=== PATIENT | female | born 1970 | race Two or more races ===

== ENCOUNTER 2023-02-24 08:15 | Inpatient (IN) | payer OTHER ==
[~2023-02-24] VITALS: Ht 160 cm; Wt 70.3 kg
[~2023-02-24 08:15] MED LIST: TOPROL XL25 M1 PO
[2023-02-28] MEDS ORDERED: CELEXA10 MG (08:12)
[2023-02-28] MEDS ORDERED: CELEXA20 MG (08:12)
[2023-02-28] MEDS ORDERED: MEGESTROL ACETA40 MG (08:13)
[2023-02-28 19:21] LABS: HEMATOCRIT 27.7 % (36.0-45.00); MEAN CELL VOLUME 86.7 fL (80.00-100.00); MEAN CORPUSCULAR HGB CONC 34.4 g/dl (32.0-36.0); PLATELET COUNT 208 K/uL (150-450); RED BLOOD COUNT 3.19 M/uL (4.00-6.00); RED CELL DISTRIBUTION WIDTH 13.5 % (11.5-14.5)
[2023-02-28 19:25] LABS: HEMOGLOBIN 9.5 g/dL (12.0-15.00); MEAN CORPUSCULAR HEMOGLOBIN 29.7 pg (27.00-32.0)
[2023-03-01 08:27] LABS: HEMOGLOBIN 8.9 g/dL (12.0-15.00); MEAN CELL VOLUME 86.9 fL (80.00-100.00); MEAN CORPUSCULAR HEMOGLOBIN 29.7 pg (27.00-32.0); MEAN CORPUSCULAR HGB CONC 34.3 g/dl (32.0-36.0); PLATELET COUNT 183 K/uL (150-450); RED BLOOD COUNT 2.99 M/uL (4.00-6.00); RED CELL DISTRIBUTION WIDTH 13.4 % (11.5-14.5)
[2023-03-02 05:32] LABS: HEMATOCRIT 25.4 % (36.0-45.00); MEAN CELL VOLUME 86.6 fL (80.00-100.00); MEAN CORPUSCULAR HGB CONC 34.3 g/dl (32.0-36.0); PLATELET COUNT 180 K/uL (150-450); RED BLOOD COUNT 2.94 M/uL (4.00-6.00); RED CELL DISTRIBUTION WIDTH 13.4 % (11.5-14.5)
[2023-03-02 05:33] LABS: HEMOGLOBIN 8.7 g/dL (12.0-15.00); MEAN CORPUSCULAR HEMOGLOBIN 29.5 pg (27.00-32.0)
[2023-03-02] MEDS ORDERED: ZOFRAN8 MG PO (11:59)
[2023-03-02] MEDS ORDERED: COLACE100 MG PO (12:00)
[2023-03-02] MEDS ORDERED: TOPROL XL25 M1 PO (12:01)
[2023-03-02] MEDS ORDERED: DICLOFENAC POTA50 MG PO (12:02)
[2023-03-02] MEDS ORDERED: ACETAMINOPHEN-1 EAC2 PO (12:04)
[2023-03-02] MEDS ORDERED: TANDEM PLUS CA1 EACH PO (12:08)
== END 2023-03-02 13:30 | disposition home or self-care (01) | DRG 743 ==
LOC: O/R 02-27 05:35 → OB/GYN 02-27 05:35 → SURH 02-27 08:15 → OB/GYN 02-27 13:58 → SURH 02-27 14:30 → OB/GYN 03-02 13:30
PROVIDERS: ADMIT Obstetrics & Gynecology; ATTEND Obstetrics & Gynecology
PROC: 0UT70ZZ Resection of Bilateral Fallopian Tubes, Open Approach (ICD-10-PCS; 2023-02-27)
PROC: 0USG7ZZ Reposition Vagina, Via Natural or Artificial Opening (ICD-10-PCS; 2023-02-27)
PROC: 0UT90ZZ Resection of Uterus, Open Approach (ICD-10-PCS; principal; 2023-02-27 14:30)
DX: D25.1 Intramural leiomyoma of uterus (principal); D25.2 Subserosal leiomyoma of uterus; N80.03 Adenomyosis of the uterus; N72 Inflammatory disease of cervix uteri; Z20.822 Contact with and (suspected) exposure to COVID-19

== ENCOUNTER 2023-03-04 12:10 | Inpatient (IN) | payer OTHER ==
[~2023-03-04] VITALS: Ht 160 cm; Wt 70.3 kg
[~2023-03-04 12:10] MED LIST changes: +ACETAMINOPHEN-1 EAC2 PO; +CELEXA10 MG; +CELEXA20 MG; +COLACE100 MG PO; +DICLOFENAC POTA50 MG PO; +MEGESTROL ACETA40 MG; +TANDEM PLUS CA1 EACH PO; +ZOFRAN8 MG PO
[2023-03-04 17:00] LABS: HEMOGLOBIN 10.8 g/dL (12.0-15.00); MEAN CORPUSCULAR HEMOGLOBIN 28.9 pg (27.00-32.0); MEAN CORPUSCULAR HGB CONC 33.6 g/dl (32.0-36.0); PLATELET COUNT 257 K/uL (150-450); RED BLOOD COUNT 3.73 M/uL (4.00-6.00); RED CELL DISTRIBUTION WIDTH 13.7 % (11.5-14.5)
[2023-03-04 17:28] LABS: C-REACTIVE PROTEIN 2.8 MG/DL (0.00-0.29); CALCIUM 8.9 mg/dL (8.5-10.1); CREATININE SERUM 0.8 mg/dL (0.55-1.02); GFR 74.75; POTASSIUM 3.54 mEq/L (3.5-5.1)
[2023-03-04 18:13] LABS: ERYTHROCYTE SEDIMENTATION RATE 27 mm/hr
[2023-03-04 21:43] LABS: INR 1.06; PARTIAL THROMBOPLASTIN TIME 26.6 SECONDS (22.0-34.0); PROTHROMBIN TIME 11.1 SECONDS (9.0-11.5)
[2023-03-04 21:47] LABS: URINE APPEARANCE Clear; URINE BILIRRUBIN Negative (NEGATIVE); URINE BLOOD Large; URINE COLOR Yellow; URINE GLUCOSE Negative (NEGATIVE); URINE LEUKOCYTE Trace; URINE NITRATE Negative; URINE PROTEIN Negative (NEGATIVE); URINE UROBILINOGEN 0.2 E.U./dl
[2023-03-04 21:50] LABS: URINE BACTERIA 55.4 uL (0.0-1933); URINE EPITHELIAL CELLS 7.5 uL (0.0-38.8); URINE RBC 458.1 uL (0.0-20.8); URINE WBC 44.3 uL (0.0-23.2)
[2023-03-06 05:57] LABS: HEMATOCRIT 30.2 % (36.0-45.00); HEMOGLOBIN 10.3 g/dL (12.0-15.00); MEAN CELL VOLUME 86.7 fL (80.00-100.00); MEAN CORPUSCULAR HEMOGLOBIN 29.6 pg (27.00-32.0); MEAN CORPUSCULAR HGB CONC 34.1 g/dl (32.0-36.0); PLATELET COUNT 256 K/uL (150-450); RED BLOOD COUNT 3.48 M/uL (4.00-6.00); RED CELL DISTRIBUTION WIDTH 13.5 % (11.5-14.5)
[2023-03-06 06:42] LABS: ALBUMIN 3.2 gm/dL (3.4-5.0); BILIRUBIN TOTAL 1.1 mg/dL (0.3-1.2); CALCIUM 8.4 mg/dL (8.5-10.1); CREATININE SERUM 0.66 mg/dL (0.55-1.02); GFR 93.33; MAGNESIUM 2.2 mg/dL (1.8-2.4); PHOSPHOROUS 3.4 mg/dL (2.5-4.9); POTASSIUM 3.82 mEq/L (3.5-5.1); TOTAL PROTEIN 6.2 gm/dL (6.4-8.2)
[2023-03-06 06:43] LABS: C-REACTIVE PROTEIN 2.92 MG/DL (0.00-0.29)
== END 2023-03-07 17:07 | disposition home or self-care (01) | DRG 603 ==
LOC: ER 12:12 → SEC-K 20:53 → MEDI 03-05 11:01
PROVIDERS: General Practice; Internal Medicine Infectious Disease; ADMIT Internal Medicine; ATTEND Internal Medicine
PROC: B54NZZZ Ultrasonography of Left Upper Extremity Veins (ICD-10-PCS; principal; 2023-03-04)
DX: L03.114 Cellulitis of left upper limb (principal); L02.512 Cutaneous abscess of left hand; B95.61 Methicillin susceptible Staphylococcus aureus infection as the cause of diseases classified elsewhere